=== PATIENT | male | born 1955 | race Caucasian/White ===

== ENCOUNTER 2018-05-02 11:08 | Inpatient (IN) | payer MEDICARE, OTHER ==
[~2018-05-02] VITALS: Ht 180.3 cm; Wt 145.0 kg
--- NOTE | ~2018-05-02 | MORECARE ---
CASE MANAGEMENT DISCHARGE SUMMARY PATIENT: YAJAIRA MCCOY UNIT: [id number] ADM DATE: 05/03/18 AGE: 62 : 59 SEX: M ROOM/BED: D.0976 AUTHOR: YANA WHIPPLE PHYSICIAN: REFERRING PHYSICIAN: BENITA NICOLE MD DATE OF SERVICE: 05/07/18 Discharge Plan Patient Name: YAJAIRA MCCOY [facility] [facility] 1955 Planned Disposition: Home Anticipated Discharge Date: 05/05/18 Discharge Date: 05/05/2018 Expected LOS: 2 Initial Reviewer: [email or web address] Initial Review Date: 05/07/2018 Generated: 05/07/18 10:43 am Patient Name: YAJAIRA MCCOY Page [id number] at 0943 All edits/amendments must be made on the electronic document DICTATION DATE: 05/07/18941 GEOPHYSICAL LABORATORY DIRECTOR: TU 05/07/1842 RPT#: [id number] DC DATE:05/05/18 STATUS: DIS IN [facility] [address] [place] [address] END OF REPORT
--- NOTE | ~2018-05-02 | EC ---
PATIENT:YAJAIRA MCCOY DATE OF SERVICE: 05/03/18 SEX: M MEDICAL RECORD: [id number] DATE OF : 59 LOCATION:D.M2 D.212 AGE OF PATIENT: 62 ADMISSION DATE: 05/03/18 REFERRING PHYSICIAN: INTERPRETING PHYSICIAN: JOVANA LPOEZ MD ECHOCARDIOGRAM REPORT ECHO CHARGES 4 ECHO COMPLETE Date: 05/03/18 CLINICAL DIAGNOSIS: CHF ECHOCARDIOGRAPHIC MEASUREMENTS (adult normal given) AC root (d.<3.7cm) 4.2 cm LV Septum d (<1.2 cm> 2.0 cm Valve Excursion 1.7 cm LV Septum (systole) 1.9 cm Left Atria (s.<4.0cm> 3.8 cm LVPW d(<1.2cm) 1.6 cm RV (d.<2.3cm) 4.2 cm LVPW (sytole) 2.1 cm LV diastole(<5.6CM) 5.2 cm MV E-F(>70mm/sec) cm LV systole 3.4 cm LVOT Diameter 2.1 cm MV exc.(>10mm) cm Est.ejection fraction (50-75%) % DOPPLER: LVIT cm/sec A 87.0 cm/sec E 85.0 cm/sec LA cm/sec RVSP 40 mmHg LVOT 109 cm/sec AOP1/2T m/s Asc. Ao 130 cm/sec RVOT cm/sec RA cm/sec PA cm/sec AV Gradient Peak 6.77 mmHg AV Mean 3.38 mmHg AV Area 2.6 cm MV Gradient Peak 7.17 mmHg MV Mean 3.10 mmHg MV Area cm COMMENTS: Makeup Editor: 2 JOCELINE EUCEDA Private Investigator: 4 Dr. Lopez TAPE# PACS Pericardial Effusion N DATE OF SERVICE: PROCEDURE: Transthoracic echocardiogram. FINDINGS: 1. Left ventricle is difficult to visualize, but overall appears to be grossly normal ejection fraction and function. No obvious regional wall motion abnormalities. Inflow characteristics are consistent with diastolic dysfunction and there appears to be moderate concentric left ventricular hypertrophy. Again, ejection fraction appears to be 60%. ECHOCARDIOGRAM REPORT [id number] YAJAIRA MCCOY 2. The left atrium is not well visualized, appears to be upper limits of normal to mildly dilated. 3. Aortic valve appears to be grossly normal. 4. The mitral valve appears to be grossly normal. 5. The tricuspid valve has mild tricuspid regurgitation. The RVSP of 40 mmHg. 6. Pericardium is normal. 7. The right ventricle is mildly dilated. CONCLUSION: The patient has evidence of hypertensive heart disease. There is no regional wall motion abnormalities. The right ventricular systolic pressures appear to be mildly elevated. Ejection fraction appears to be preserved. The patient does have diastolic dysfunction. TRANSINT:[id number] Voice Confirmation ID: [id number] DOCUMENT ID: [id number] JOVANA LOPEZ MD at 0916 CC: [id number] DICTATION DATE: 05/04/18 1303 MANUFACTURERS SERVICE REPRESENTATIVE: 05/04/18 1501 ADM IN [facility] [address] [place] [address]
[2018-05-02] MEDS ORDERED: ZANTAC300 MG PO (11:38)
[2018-05-02] MEDS ORDERED: NAPROSYN500 MG PO (11:40)
[2018-05-02] MEDS ORDERED: WELLBUTRIN SR150 MG PO (11:41)
[2018-05-02] MEDS ORDERED: ZYRTEC10 MG PO (11:41)
[2018-05-02] MEDS ORDERED: EFFEXOR XR150 MG PO (11:42)
[2018-05-02] MEDS ORDERED: LIPITOR80 MG PO (11:44)
[2018-05-02] MEDS ORDERED: BUMEX2 MG PO (11:45)
[2018-05-02] MEDS ORDERED: PAMELOR 25 MG C25 MG PO (11:46)
[2018-05-02] MEDS ORDERED: TRICOR145 MG PO (11:46)
[2018-05-02] MEDS ORDERED: GLUCOPHAGE500 MG PO (11:47)
[2018-05-02] MEDS ORDERED: LISINOPRIL10 MG PO (11:47)
[2018-05-02] MEDS ORDERED: IBUPROFEN200 MG PO (11:49)
[2018-05-02] MEDS ORDERED: MELATONIN 3 MG1 TAB PO (11:50)
[2018-05-02 12:37] VITALS: BP 146/73; BMI 48.1
[2018-05-02 13:06] VITALS: Ht 180.3 cm; Wt 145.0 kg
[2018-05-02 14:11] LABS: ALBUMIN 3.4 g/dL (3.4-5.0); ANION GAP 10.8 mmol/L (8-16); BILIRUBIN - TOTAL 0.27 mg/dL (0.2-1.3); CALCIUM 9.5 mg/dL (8.5-10.1); CARBON DIOXIDE 29.1 mmol/L (21.0-32.0); CREATININE - SERUM 1.3 mg/dL (0.6-1.3); POTASSIUM - SERUM 3.9 mmol/L (3.5-5.1); PROTEIN - SERUM 7.9 g/dL (6.4-8.2)
[2018-05-02 14:19] LABS: APTT 26.7 SECONDS (22.8-39.4); INR 0.95 (0.85-1.17); PROTIME 12.4 SECONDS (11.6-15.0)
[2018-05-02 14:21] LABS: D-DIMER-QUANTITATIVE 1.11 ug/mLFEU (0.20-0.54)
[2018-05-02 14:29] LABS: BASOPHILS 0.2 % (0-2); EOSINOPHILS 1.8 % (0-7); HEMATOCRIT 38.5 % (42.0-54.0); HEMOGLOBIN 12.8 g/dL (13.5-17.5); IMMATURE GRANULOCYTES 0.3 % (0-5); LYMPHOCYTES 26.3 % (15-50); MCH 31.1 pg (26.0-34.0); MCHC 33.2 g/dL (31.0-37.0); MCV 93.7 fL (80.0-100.0); MEAN PLATELET VOLUME 10.6 fL (7.4-10.4); MONOCYTES 8.8 % (2-11); NEUTROPHILS 62.6 % (40-80); PLATELET COUNT 472 10x3/uL (130-400); RBC 4.11 10x6/uL (4.20-6.10); RDW 12.9 % (11.5-14.5); WBC 11.9 10x3/uL (4.8-10.8)
[2018-05-02 15:39] VITALS: BP 146/73
[2018-05-02 21:07] VITALS: BP 136/79
[2018-05-03 00:42] VITALS: BP 117/73
[2018-05-03 05:17] VITALS: BP 132/77
[2018-05-03 07:56] VITALS: BP 137/67
[2018-05-03 12:05] VITALS: BP 123/75
[2018-05-03 15:04] VITALS: BP 103/68
[2018-05-03 21:03] VITALS: BP 113/50
[2018-05-04] VITALS (7 sets, daily range): BP systolic 111–157; BP diastolic 40–76
[2018-05-04 06:40] LABS: BASOPHILS 0.1 % (0-2); EOSINOPHILS 2.2 % (0-7); HEMATOCRIT 34.8 % (42.0-54.0); HEMOGLOBIN 11.5 g/dL (13.5-17.5); IMMATURE GRANULOCYTES 0.2 % (0-5); MCH 31.3 pg (26.0-34.0); MCV 94.6 fL (80.0-100.0); MEAN PLATELET VOLUME 10.6 fL (7.4-10.4); MONOCYTES 12.8 % (2-11); NEUTROPHILS 55.7 % (40-80); PLATELET COUNT 429 10x3/uL (130-400); RBC 3.68 10x6/uL (4.20-6.10); RDW 13.1 % (11.5-14.5); WBC 9.4 10x3/uL (4.8-10.8)
[2018-05-04 06:49] LABS: CALCIUM 8.7 mg/dL (8.5-10.1); CARBON DIOXIDE 29.3 mmol/L (21.0-32.0); CREATININE - SERUM 1.2 mg/dL (0.6-1.3)
[2018-05-04 06:52] LABS: POTASSIUM - SERUM 3.3 mmol/L (3.5-5.1)
[2018-05-04 17:53] LABS: APPEARANCE CLEAR (CLEAR); BACTERIA NONE SEEN /hpf (NONE SEEN); BILIRUBIN NEGATIVE (NEGATIVE); COLOR YELLOW (YELLOW); EPITHELIAL CELLS OCC /hpf (0-5); GLUCOSE NEGATIVE (NEGATIVE); KETONE NEGATIVE (NEGATIVE); NITRITE NEGATIVE (NEGATIVE); PROTEIN NEGATIVE (NEGATIVE); RED CELLS - URINE OCC /hpf (0-5); SPECIFIC GRAVITY 1.015 (1.005-1.020); UROBILINOGEN NORMAL (NORMAL); WHITE CELLS - URINE NSEEN /hpf (0-5)
[2018-05-05 03:50] VITALS: BP 106/40
[2018-05-05 05:55] LABS: BASOPHILS 0.2 % (0-2); EOSINOPHILS 2.7 % (0-7); HEMOGLOBIN 12.2 g/dL (13.5-17.5); IMMATURE GRANULOCYTES 0.2 % (0-5); LYMPHOCYTES 39.1 % (15-50); MCH 31.4 pg (26.0-34.0); MCV 95.1 fL (80.0-100.0); MEAN PLATELET VOLUME 10.4 fL (7.4-10.4); MONOCYTES 13.3 % (2-11); NEUTROPHILS 44.5 % (40-80); PLATELET COUNT 446 10x3/uL (130-400); RBC 3.89 10x6/uL (4.20-6.10); RDW 13.1 % (11.5-14.5); WBC 8.9 10x3/uL (4.8-10.8)
[2018-05-05 06:18] LABS: ANION GAP 11.2 mmol/L (8-16); CALCIUM 8.9 mg/dL (8.5-10.1); CARBON DIOXIDE 29.8 mmol/L (21.0-32.0); CREATININE - SERUM 1.3 mg/dL (0.6-1.3)
[2018-05-05 07:50] VITALS: BP 133/65
[2018-05-05] MEDS ORDERED: KEFLEX500 MG PO (10:02)
[2018-05-05 11:09] VITALS: BP 139/61
== END 2018-05-05 15:36 | disposition home or self-care (01) | DRG 638 ==
LOC: D.M2 11:08 → D.SDCHOLD 11:08 → OBSVTIME 11:09 → D.M2 11:10
PROVIDERS: Internal Medicine Nephrology
DX: E11.628 Type 2 diabetes mellitus with other skin complications (principal); L03.115 Cellulitis of right lower limb; Z68.42 Body mass index [BMI] 45.0-49.9, adult; F17.213 Nicotine dependence, cigarettes, with withdrawal; I10 Essential (primary) hypertension; E78.5 Hyperlipidemia, unspecified; E11.42 Type 2 diabetes mellitus with diabetic polyneuropathy; J44.9 Chronic obstructive pulmonary disease, unspecified; F43.10 Post-traumatic stress disorder, unspecified; K21.9 Gastro-esophageal reflux disease without esophagitis; E66.01 Morbid (severe) obesity due to excess calories; I87.8 Other specified disorders of veins

== ENCOUNTER 2020-02-07 16:58 | Inpatient (IN) | payer MEDICARE, OTHER ==
[~2020-02-07] VITALS: Ht 180.3 cm; Wt 145.1 kg
[~2020-02-07 16:58] MED LIST: BUMEX2 MG PO; EFFEXOR XR150 MG PO; GLUCOPHAGE500 MG PO; IBUPROFEN200 MG PO; KEFLEX500 MG PO; LIPITOR80 MG PO; LISINOPRIL10 MG PO; MELATONIN 3 MG1 TAB PO; NAPROSYN500 MG PO; PAMELOR 25 MG C25 MG PO; TRICOR145 MG PO; WELLBUTRIN SR150 MG PO; ZANTAC300 MG PO; ZYRTEC10 MG PO
[2020-02-07 17:58] LABS: BASOPHILS 0.1 % (0-2); EOSINOPHILS 1.1 % (0-7); HEMATOCRIT 27.4 % (42.0-54.0); HEMOGLOBIN 8.6 g/dL (13.5-17.5); IMMATURE GRANULOCYTES 0.1 % (0-5); LYMPHOCYTES 21.7 % (15-50); MCH 30.2 pg (26.0-34.0); MCHC 31.4 g/dL (31.0-37.0); MCV 96.1 fL (80.0-100.0); MEAN PLATELET VOLUME 9.1 fL (7.4-10.4); MONOCYTES 8.4 % (2-11); NEUTROPHILS 68.6 % (40-80); PLATELET COUNT 439 10x3/uL (130-400); RBC 2.85 10x6/uL (4.20-6.10); RDW 15.8 % (11.5-14.5); WBC 9.2 10x3/uL (4.8-10.8)
[2020-02-07 18:10] LABS: CALC OSMOLALITY 281 mosm/kg (275-300); CALCIUM 8.5 mg/dL (8.5-10.1); CARBON DIOXIDE 28.5 mmol/L (21.0-32.0); CHLORIDE - SERUM 106 mmol/L (98-107); CREATININE - SERUM 1.5 mg/dL (0.6-1.3); GLUCOSE 103 mg/dL (74-106); POTASSIUM - SERUM 3.6 mmol/L (3.5-5.1); SODIUM 141 mmol/L (136-145); UREA NITROGEN 15 mg/dL (7-18); eGFR NON AFRICAN AMERICAN 50 mL/min (90-120)
[2020-02-07 18:12] LABS: INR 1.03 (0.85-1.17); PROTIME 13.4 SECONDS (11.6-15.0)
[2020-02-07 18:13] LABS: APTT 38.3 SECONDS (22.8-39.4)
[2020-02-07 18:27] LABS: ALBUMIN 1.9 g/dL (3.4-5.0); ALKALINE PHOSPHATASE 132 U/L (30-120); ALT (SGPT) 26 U/L (10-68); BILIRUBIN - TOTAL 0.13 mg/dL (0.2-1.3); CKMB 2.1 U/L (0.0-3.6); CREATINE KINASE 57 UL (21-232); PRO BNP 5244 pg/mL (0-125); PROTEIN - SERUM 5.9 g/dL (6.4-8.2)
[2020-02-07 18:42] LABS: TROPONIN-I < 0.017 ng/mL (0.000-0.060)
--- NOTE | 2020-02-07 19:19 | NUR ---
OCCULT BLOOD NEGATIVE
[2020-02-07 19:24] LABS: BILIRUBIN NEGATIVE (NEGATIVE); KETONE NEGATIVE (NEGATIVE); NITRITE NEGATIVE (NEGATIVE); UROBILINOGEN NORMAL (NORMAL); WHITE CELLS - URINE 0-5 /hpf (0-5)
[2020-02-07 19:25] LABS: BACTERIA FEW /hpf (NONE SEEN)
[2020-02-07 19:28] LABS: C-REACTIVE PROTEIN 8.1 mg/dL (0.0-0.9)
[2020-02-08 00:05] VITALS: BP 161/89
--- NOTE | 2020-02-08 00:05 | NUR ---
PT ARRIVED TO ROOM, NO C/O OR CONCERNS EXPRESSED. EDUCATED CALL LIGHT FOR ASSITANCE. WILL CPOC.
--- NOTE | 2020-02-08 00:07 | NUR ---
WT [id number] HT 511
[2020-02-08 04:30] VITALS: BP 139/99
[2020-02-08 05:08] VITALS: BP 161/89; BMI 44.7
--- NOTE | 2020-02-08 05:13 | NUR ---
PT UNABLE TO TELL ME WHAT HIS HOME MEDICATIONS ARE. STATES HE KNOWS WHAT TO TAKE BUT DOES NOT KNOW WHAT THEY ARE CALLED
[2020-02-08 07:25] LABS: BASOPHILS 0.1 % (0-2); EOSINOPHILS 1.1 % (0-7); HEMATOCRIT 29.8 % (42.0-54.0); IMMATURE GRANULOCYTES 0.4 % (0-5); LYMPHOCYTES 23.2 % (15-50); MCH 29.4 pg (26.0-34.0); MCHC 30.2 g/dL (31.0-37.0); MCV 97.4 fL (80.0-100.0); MEAN PLATELET VOLUME 9.6 fL (7.4-10.4); NEUTROPHILS 64.2 % (40-80); PLATELET COUNT 501 10x3/uL (130-400); RBC 3.06 10x6/uL (4.20-6.10); WBC 8.2 10x3/uL (4.8-10.8)
[2020-02-08 07:38] LABS: CALCIUM 8.7 mg/dL (8.5-10.1); CARBON DIOXIDE 29.5 mmol/L (21.0-32.0); CREATININE - SERUM 1.6 mg/dL (0.6-1.3); PHOSPHOROUS 4.6 mg/dL (2.5-4.9); POTASSIUM - SERUM 3.5 mmol/L (3.5-5.1)
[2020-02-08 08:51] VITALS: BP 161/80
[2020-02-08 12:46] VITALS: BP 157/64
[2020-02-08 13:00] VITALS: Ht 180.3 cm; Wt 145.1 kg
[2020-02-08] MEDS ORDERED: OMNICEF300 MG PO (14:01)
[2020-02-08] MEDS ORDERED: ZITHROMAX250 MG PO (14:01)
[2020-02-08] MEDS ORDERED: VENTOLIN HFA [SP8 GM INH (14:02)
--- NOTE | 2020-02-08 14:24 | MORECARE ---
CASE MANAGEMENT DISCHARGE SUMMARY PATIENT: YAJAIRA MCCOY UNIT: [id number] ADM DATE: 02/07/20 AGE: 64 : 59 SEX: M ROOM/BED: D.2134 AUTHOR: YANA WHIPPLE PHYSICIAN: REFERRING PHYSICIAN: PEREZ CHARLES DO DATE OF SERVICE: 02/08/20 Discharge Plan Patient Name: YAJAIRA MCCOY [facility] [facility] 1955 Planned Disposition: Home or Self Care Anticipated Discharge Date: Discharge Date: Expected LOS: Initial Reviewer: [email or web address] Initial Review Date: 02/08/2020 Generated: 02/08/20 3:23 pm Patient Name: YAJAIRA MCCOY Page [id number] at 1424 All edits/amendments must be made on the electronic document DICTATION DATE: 02/08/20 142 PRESS TECHNICIAN: TU 02/08/20 1423 RPT#: [id number] DC DATE: STATUS: ADM IN [facility] [address] [place] [address] END OF REPORT
--- NOTE | 2020-02-08 14:31 | MORECARE ---
CASE MANAGEMENT DISCHARGE SUMMARY PATIENT: YAJAIRA MCCOY UNIT: [id number] ADM DATE: 02/07/20 AGE: 64 : 59 SEX: M ROOM/BED: D.6124 AUTHOR: YANA WHIPPLE PHYSICIAN: REFERRING PHYSICIAN: PEREZ CHARLES DO DATE OF SERVICE: 02/08/20 Discharge Plan Patient Name: YAJAIRA MCCOY Facility: [facility]:[place] : 1955 Planned Disposition: Home or Self Care Anticipated Discharge Date: Discharge Date: Expected LOS: Initial Reviewer: [id number] Initial Review Date: 02/08/2020 Generated: 02/08/20 3:30 pm DCP- Discharge Planning Updated by [email or web address]: Mariann Owusu on 02/08/20 1:[address] Patient Name: YAJAIRA MCCOY Admission Status: ER Accout number: [id number] Admission Date: 02-07-2020 : 1955 Admission Diagnosis: Attending: PEREZ CHARLES Current LOS: 1 Anticipated DC Date: Planned Disposition: Home or Self Care Primary Insurance: MEDICARE A & B Discharge Planning Comments: CM met with patient to complete initial dc planning assessment. CM educated patient on the CM role and verbal consent given by patient to complete assessment. CM verified patient's address, phone number, and emergency contact phone numbers. Patient lives at home with his and is independent. At discharge patient plans to return home and feels this is a safe discharge. CM discussed availability of home health, rehab services, and medical equipment. Patient has a cane at home. The patient has been on oxygen while in the hospital and states he still gets SOB. A walk test was ordered to assess for home and portable oxygen. TAMIA was signed for [facility]. Patient denies other known discharge needs at this time. Transportation provider at discharge will be his . DC IMM delivered, explained, signed by the patient, and placed in chart. Signed form also left with the patient. CM will continue to follow and will assist as needed with dc plans/needs. Cattle Knocker: Mariann Owusu MSN,RN,CM DCPIA - Discharge Planning Initial Assessment Updated by [id number]: Mariann Owusu on 8/29/20 2:24 pm * Is the patient Alert and Oriented? Yes * How many steps to enter\exit or inside your home? 0/0 * [facility] [place] [facility] [place] * Preadmission Environment Home with Family * ADLs Independent * Equipment Cane * Community resources currently utilized None * Additional services required to return to the preadmission environment? Yes * Can the patient safely return to the preadmission environment? No * Has this patient been hospitalized within the prior 30 days at any hospital? No Coverage Notice Reviewer: [email or web address] Owusu Notice Issued Date-Time: 02/08/2020 14:15 Notice Type: Patient Choice Letter Notice Delivered To: Patient Relationship to Patient: Commercial Real Estate Broker Name: Delivery Method: HAND - Hand Delivered Doris Days: Prior Verbal Notification: Recipient Understood Notice: Yes Recipient Signature: Yes Med Rec Note Co-signed by Attending: Coverage Notice Comment: [facility] for home and portable oxygen Reviewer: [id number] Puma Owusu Notice Issued Date-Time: 02/08/2020 14:15 Notice Type: IM Discharge Notice Notice Delivered To: Patient Relationship to Patient: Commercial Real Estate Broker Name: Delivery Method: HAND - Hand Delivered Doris Days: Prior Verbal Notification: Recipient Understood Notice: Yes Recipient Signature: Yes Med Rec Note Co-signed by Attending: Coverage Notice Comment: dc imm Last DP export: 02/08/20 1:24 p Patient Name: YAJAIRA MCCOY Page [id number] at 1431 All edits/amendments must be made on the electronic document DICTATION DATE: 02/08/201429 POULTRY HANGER: TU 02/08/201429 RPT#: [id number] DC DATE: STATUS: ADM IN [facility] [address] [place] [address] END OF REPORT
--- NOTE | 2020-02-08 15:47 | MORECARE ---
CASE MANAGEMENT DISCHARGE SUMMARY PATIENT: YAJAIRA MCCOY UNIT: [id number] ADM DATE: 02/07/20 AGE: 64 : 59 SEX: M ROOM/BED: D.3364 AUTHOR: YANA WHIPPLE PHYSICIAN: REFERRING PHYSICIAN: PEREZ CHARLES DO DATE OF SERVICE: 02/08/20 Discharge Plan Patient Name: YAJAIRA MCCOY Facility: [facility]:[place] : 1955 Planned Disposition: Home or Self Care Anticipated Discharge Date: Discharge Date: Expected LOS: Initial Reviewer: [email or web address] Initial Review Date: 02/08/2020 Generated: 02/08/20 4:46 pm Comments DCP- Discharge Planning Updated by [email or web address]: Mariann Owusu on 02/08/20 2:[address] Patient Name: YAJAIRA MCCOY Admission Status: ER Accout number: [id number] Admission Date: 02-07-2020 : 1955 Admission Diagnosis: Attending: PEREZ CHARLES Current LOS: 1 Anticipated DC Date: Planned Disposition: Home or Self Care Primary Insurance: MEDICARE A & B Discharge Planning Comments: CM met with patient to complete initial dc planning assessment. CM educated patient on the CM role and verbal consent given by patient to complete assessment. CM verified patient's address, phone number, and emergency contact phone numbers. Patient lives at home with his and is independent. At discharge patient plans to return home and feels this is a safe discharge. CM discussed availability of home health, rehab services, and medical equipment. Patient has a cane at home. The patient has been on oxygen while in the hospital and states he still gets SOB. A walk test was ordered to assess for home and portable oxygen. [facility] Patient denies other known discharge needs at this time. Transportation provider at discharge will be his . DC IMM delivered, explained, signed by the patient, and placed in chart. Signed form also left with the patient. CM will continue to follow and will assist as needed with dc plans/needs. A walk test was performed. Pt oxygen saturations are 94 on room air and increased to 97% while ambulating around the nurses station. No oxygen is needed at this time. Pumpman: Mariann Owusu MSN,RN,CM DCPIA - Discharge Planning Initial Assessment Updated by [email or web address]: Mariann Owusu on 02/08/20 2:24 pm * Is the patient Alert and Oriented? Yes * How many steps to enter\exit or inside your home? 0/0 * [facility] [place] [facility] [place] * Preadmission Environment Home with Family * ADLs Independent * Equipment Cane * Community resources currently utilized None * Additional services required to return to the preadmission environment? Yes * Can the patient safely return to the preadmission environment? No * Has this patient been hospitalized within the prior 30 days at any hospital? No Coverage Notice Reviewer: [id number] Puma Owusu Notice Issued Date-Time: 02/08/2020 14:15 Notice Type: Patient Choice Letter Notice Delivered To: Patient Relationship to Patient: Pest Control Specialist Name: Delivery Method: HAND - Hand Delivered Doris Days: Prior Verbal Notification: Recipient Understood Notice: Yes Recipient Signature: Yes Med Rec Note Co-signed by Attending: Coverage Notice Comment: [facility]zma for home and portable oxygen Reviewer: [id number] Puma Owusu Notice Issued Date-Time: 02/08/2020 14:15 Notice Type: IM Discharge Notice Notice Delivered To: Patient Relationship to Patient: Pest Control Specialist Name: Delivery Method: HAND - Hand Delivered Doris Days: Prior Verbal Notification: Recipient Understood Notice: Yes Recipient Signature: Yes Med Rec Note Co-signed by Attending: Coverage Notice Comment: dc imm Last DP export: 02/08/20 1:31 p Patient Name: YAJAIRA MCCOY Page [id number] at 1547 All edits/amendments must be made on the electronic document DICTATION DATE: 02/08/20 1547 THERMODYNAMICIST: TU 02/08/20 1547 RPT#: [id number] DC DATE: STATUS: ADM IN [facility] [address] [place] [address] END OF REPORT
--- NOTE | 2020-02-08 15:48 | NUR ---
I have reviewed this patient and I concur with the Shift Assessment completed by the Licensed Practical Nurse today this shift.
--- NOTE | 2020-02-08 17:35 | NUR ---
D/C INSTRUCTIONS REVIEWED WITH PT AND FAMILY MEMBER. IV D/C WITH CATHETER TIP INTACT. PT LEFT WITH ALL BELONGINGS VIA WHEELCHAIR TO PERSONAL VEHICLE.
--- NOTE | 2020-02-09 18:57 | MORECARE ---
CASE MANAGEMENT DISCHARGE SUMMARY PATIENT: YAJAIRA MCCOY UNIT: [id number] ADM DATE: 02/07/20 AGE: 64 : 59 SEX: M ROOM/BED: D.7804 AUTHOR: YANA WHIPPLE PHYSICIAN: REFERRING PHYSICIAN: PEREZ CHARLES DO DATE OF SERVICE: 02/09/20 Discharge Plan Patient Name: YAJAIRA MCCOY Facility: [facility]:[place] : 1955 Planned Disposition: Home or Self Care Anticipated Discharge Date: Discharge Date: 02/08/2020 Expected LOS: Initial Reviewer: [email or web address] Initial Review Date: 02/08/2020 Generated: 02/09/20 7:57 pm Comments DCP- Discharge Planning Updated by [email or web address]: Mariann Owusu on 02/08/20 2:[address] Patient Name: YAJAIRA MCCOY Admission Status: ER Accout number: [id number] Admission Date: 02-07-2020 : 1955 Admission Diagnosis: Attending: PEREZ CHARLES Current LOS: 1 Anticipated DC Date: Planned Disposition: Home or Self Care Primary Insurance: MEDICARE A & B Discharge Planning Comments: CM met with patient to complete initial dc planning assessment. CM educated patient on the CM role and verbal consent given by patient to complete assessment. CM verified patient's address, phone number, and emergency contact phone numbers. Patient lives at home with his and is independent. At discharge patient plans to return home and feels this is a safe discharge. CM discussed availability of home health, rehab services, and medical equipment. Patient has a cane at home. The patient has been on oxygen while in the hospital and states he still gets SOB. A walk test was ordered to assess for home and portable oxygen. [facility] Patient denies other known discharge needs at this time. Transportation provider at discharge will be his . DC IMM delivered, explained, signed by the patient, and placed in chart. Signed form also left with the patient. CM will continue to follow and will assist as needed with dc plans/needs. A walk test was performed. Pt oxygen saturations are 94 on room air and increased to 97% while ambulating around the nurses station. No oxygen is needed at this time. Living Coach: Mariann Owusu MSN,RN,CM DCPIA - Discharge Planning Initial Assessment Updated by [email or web address]: Mariann Owusu on 02/08/20 2:24 pm * Is the patient Alert and Oriented? Yes * How many steps to enter\exit or inside your home? 0/0 * [facility] [place] [facility] [place] * Preadmission Environment Home with Family * ADLs Independent * Equipment Cane * Community resources currently utilized None * Additional services required to return to the preadmission environment? Yes * Can the patient safely return to the preadmission environment? No * Has this patient been hospitalized within the prior 30 days at any hospital? No Coverage Notice Reviewer: [id number] Puma Owusu Notice Issued Date-Time: 02/08/2020 14:15 Notice Type: Patient Choice Letter Notice Delivered To: Patient Relationship to Patient: Timber Inspector Name: Delivery Method: HAND - Hand Delivered Doris Days: Prior Verbal Notification: Recipient Understood Notice: Yes Recipient Signature: Yes Med Rec Note Co-signed by Attending: Coverage Notice Comment: Uzma for home and portable oxygen Reviewer: [id number] Puma Owusu Notice Issued Date-Time: 02/08/2020 14:15 Notice Type: IM Discharge Notice Notice Delivered To: Patient Relationship to Patient: Timber Inspector Name: Delivery Method: HAND - Hand Delivered Doris Days: Prior Verbal Notification: Recipient Understood Notice: Yes Recipient Signature: Yes Med Rec Note Co-signed by Attending: Coverage Notice Comment: dc imm Last DP export: 02/08/20 2:47 p Patient Name: YAJAIRA MCCOY Page [id number] at 1857 All edits/amendments must be made on the electronic document DICTATION DATE: 02/09/201856 HIGH SCHOOL GUIDANCE COUNSELOR: TU 02/09/201856 RPT#: [id number] DC DATE:02/08/20 STATUS: DIS IN [facility] [address] [place] [address] END OF REPORT
== END 2020-02-08 17:36 | disposition home or self-care (01) | DRG 190 ==
LOC: D.ER 16:58 → D.M2 19:42
PROVIDERS: Emergency Medicine; Family Medicine; ADMIT Family Medicine; ATTEND Family Medicine
DX: J44.0 Chronic obstructive pulmonary disease with (acute) lower respiratory infection (principal); J18.9 Pneumonia, unspecified organism; F17.203 Nicotine dependence unspecified, with withdrawal; Z68.41 Body mass index [BMI] 40.0-44.9, adult; J44.1 Chronic obstructive pulmonary disease with (acute) exacerbation; I10 Essential (primary) hypertension; E11.9 Type 2 diabetes mellitus without complications; E66.01 Morbid (severe) obesity due to excess calories; E78.5 Hyperlipidemia, unspecified; F41.8 Other specified anxiety disorders